=== PATIENT | male | born 1990 | race Caucasian/White ===

== ENCOUNTER 2018-12-24 17:01 | Observation (INO) | payer OTHER ==
[~2018-12-24] VITALS: Ht 175.3 cm; Wt 116.0 kg
[2018-12-24 21:24] VITALS: Ht 175.3 cm; Wt 116.0 kg
[2018-12-24 21:40] VITALS: BP 134/71; PULSE 80; RESP 19
[2018-12-24 21:45] VITALS: PULSE 83
[2018-12-24] MEDS ORDERED: LACTOBACILLUS RHAMNOSUS CAP GTB SCH (22:00)
[2018-12-24] MEDS ORDERED: FUROSEMIDE 40 MG TAB GTB SCH (22:00)
[2018-12-24] MEDS ORDERED: ACETAMINOPHEN 650MG/20.3ML CUP GTB PRN ×2 (22:00)
[2018-12-24] MEDS ORDERED: VALPROIC ACID LIQUID CUP 250 MG/5 ML CUP GTB SCH (22:00)
[2018-12-24] MEDS ORDERED: OCULAR LUBRICANT 3.5 GM OPH OINT BOTH EYES SCH (22:00)
[2018-12-24] MEDS ORDERED: LEVETIRACETAM (100 MG/ML) 5ML CUP GTB SCH (22:00)
[2018-12-24] MEDS ORDERED: HEPARIN 5,000 UNIT/1 ML VIAL SC SCH (22:00)
[2018-12-24] MEDS ORDERED: FAMOTIDINE 20 MG TAB GTB SCH (22:00)
[2018-12-24] MEDS ORDERED: NYSTATIN 30 GM POWDER BTL TOP SCH (22:00)
[2018-12-24] MEDS ORDERED: ALBUTEROL/IPRATROPIUM (NEB) 3 ML AMP INH PRN (22:30)
[2018-12-24] MEDS ORDERED: LORAZEPAM 1 MG TAB GTB PRN (22:30)
[2018-12-25] VITALS: BP 150/89; PULSE 70; PULSE 90; RESP 19
[2018-12-25] MEDS ORDERED: ONDANSETRON 4 MG INJ IV PRN (00:30)
[2018-12-25] MEDS ORDERED: NITROGLYCERIN (SL) 0.4 MG TAB SL PRN (00:30)
[2018-12-25] MEDS ORDERED: BISACODYL (EC) 5 MG TAB PO PRN (00:30)
[2018-12-25] MEDS ORDERED: DOCUSATE SODIUM 100 MG CAP PO PRN (00:30)
[2018-12-25] MEDS ORDERED: NACL 0.9% 3 ML SYG IV SCH (00:30)
[2018-12-25] MEDS ORDERED: ACETAMINOPHEN 325 MG TAB PO PRN (00:30)
[2018-12-25] MEDS ORDERED: ALBUTEROL/IPRATROPIUM (NEB) 3 ML AMP HHN SCH (01:00)
--- NOTE | 2018-12-25 02:56 | HP ---
Date/Time of Note Date/Time of Note DATE: 12/25/18 TIME: 02:55 Assessment/Plan VTE Prophylaxis SCD applied (from Nsg): Yes Pharmacological prophylaxis: NA/contraindicated Pharm contraindication: low risk/ambulating Lines/Catheters IV Catheter Type (from Nrsg): Peripheral IV Assessment/Plan Hospital Course This is a 28-year male being admitted to the telemetry floor for: #1 chest pain: Rule out ACS versus costochondritis secondary to URI. Patient does have anterior chest wall pain. He does have a history of hypertension as well and a family history of [place]. Will trend cardiac enzymes x3, first enzymes were negative. Will check an echocardiogram. Consider cardiology consultation. We will check hemoglobin A 1C, lipid panel, TSH. We will also give 2 doses of Toradol. #2 URI: Patient did have an elevated white blood cell count of approximate 14,000 the transfer facility, will recheck labs here. Patient is currently afebrile. This likely appears to be post viral cough. Will check a chest x-ray as well. #3 hypertension: We will resume patient home blood pressure medication #4 obesity: We will check hemoglobin A 1C, lipid panel, TSH encourage diet and exercise #5 DVT GI prophylaxis: SCDs, no GI prophylaxis indicated Further treatment strategy will be implemented as per the clinical course. Result Diagram: 12/25/185 12/25/185 Results 24hrs Laboratory Tests Test 12/25/18 00:35 White Blood Count 10.6 Red Blood Count 5.04 Hemoglobin 13.4 L Hematocrit 41.7 L Mean Corpuscular Volume 82.7 Mean Corpuscular Hemoglobin 26.6 L Mean Corpuscular Hemoglobin Concent 32.1 Red Cell Distribution Width 13.0 Platelet Count 293 Mean Platelet Volume 10.7 H Immature Granulocytes % 0.800 H Neutrophils % 49.8 Lymphocytes % 39.1 Monocytes % 6.4 Eosinophils % 3.2 Basophils % 0.7 Nucleated Red Blood Cells % 0.0 Immature Granulocytes # 0.080 H Neutrophils # 5.3 Lymphocytes # 4.1 H Monocytes # 0.7 Eosinophils # 0.3 Basophils # 0.1 Nucleated Red Blood Cells # 0.0 Sodium Level 141 Potassium Level 4.5 Chloride Level 108 Carbon Dioxide Level 22 Anion Gap 11 Blood Urea Nitrogen 17 Creatinine 0.78 Est Glomerular Filtrat Rate mL/min > 60 Glucose Level 102 Hemoglobin A1c 5.7 Calcium Level 9.7 Magnesium Level 2.1 Total Bilirubin 0.3 Direct Bilirubin 0.00 Indirect Bilirubin 0.3 Aspartate Amino Transf (AST/SGOT) 34 Alanine Aminotransferase (ALT/SGPT) 46 Alkaline Phosphatase 83 Creatine Kinase 89 Creatine Kinase Index 0.6 Creatinine Kinase MB (Mass) 0.53 Troponin I < 0.012 Total Protein 7.8 Albumin 4.2 Globulin 3.60 H Albumin/Globulin Ratio 1.16 Triglycerides Level 204 H Cholesterol Level 193 LDL Cholesterol, Calculated 120 HDL Cholesterol 32 Cholesterol/HDL Ratio 6.0 Thyroid Stimulating Hormone (TSH) 1.930 HPI/ROS Admit Date/Time Admit Date/Time Dec 24, 2018 at 21:00 Hx of Present Illness Chief complaint: Cough times 2 weeks, chest pressure This is a 28-year-old male with a past medical history of hypertension and acid reflux who originally presented to [facility] complaining of cold like symptoms for the last 2 weeks along with chest pressure for approximately 1-2 days. Patient reports that he had a cough that started approximately 2 weeks ago with runny nose and headaches. After those resolved he continued to have a cough. 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 He also was feeling short of breath while he was walking. He denies any hemoptysis. Denies any pleuritic chest pain. Denies any radiation to the arm. He does have a family history of cardiac disease and heart attacks. He continues to have a cough. Vitals on presentation at the transferring facility: Temperature 99.3/pulse 101/respirations 16/BP 164/95/pulse ox 99% on room air Pertinent laboratory findings please see chart for full details: White blood cell count 14.1/hemoglobin 13.5/hematocrit 41%/platelet count 169 Sodium 138 potassium 4.0 chloride 102 carbon dioxide 24 creatinine 0.8/troponin less than 6 graph EKG: Normal sinus rhythm at approximately 93 bpm, no ST or T wave of normalities concerning for acute ischemia Allergies: NKDA Medications: Benazepril Hydrochlorothiazide ROS Const: As per HPI Eyes : No pain discharge or redness or change in visual acuity ENT: No pain, sore throat, congestion, congestion, dysphagia or discharge Respiratory: As per HPI Cardiovascular: as per HPI GI : no change in appetite, abdominal pain, nausea, vomiting, diarrhea, const ipation, or change in the color his stool Genitourinary: No dysuria, hematuria, flank pain , discharge or CVA tenderness Musculoskeletal: No joint pain, back pain, neck pain, restricted range of motion in neck or joints Skin: No rash, bruising or hives Neuro: No headache, dizziness, syncope, seizure, focal weakness Endocrine: No polyuria, polydipsia, temperature intolerance Psych: No hallucination, depression, anxiety or suicidal ideation PMH/Family/Social Past Medical History Hypertension Medications Current Medications IV Flush (NS 3 ml) 3 ml PER PROTOCOL IV ; Start 12/25/18 at 00:30 Ondansetron HCl (Zofran Inj) 4 mg Q6H PRN IV NAUSEA/VOMITING; Start 12/25/18 at 00:30 Nitroglycerin (Nitroglycerin (Sl Tab) 0.4 Mg) 1 tab Q5M PRN SL .CHEST PAIN; Start 12/25/18 at 00:30 Acetaminophen (Tylenol Tab) 650 mg Q6H PRN PO .PAIN 1-3 OR TEMP; Start 12/25/18 at 00:30 Docusate Sodium (Colace) 100 mg Q12H PRN PO .CONSTIPATION; Start 12/25/18 at 00:30 Bisacodyl (Dulcolax) 5 mg DAILY PRN PO .CONSTIPATION; Start 12/25/18 at 00:30 Coded Allergies: Unknown: Unable to obtain (Unverified , 12/25/18) Past Surgical History Past Surgical Hx: no surgical history Family History Significant Family History: heart disease Social History Alcohol Use: none Smoking Status: Never smoker Drug Use: none Exam/Review of Systems Vital Signs Vitals Vital Signs Date Temp Pulse Resp B/P (MAP) Pulse Ox O2 O2 Flow FiO2 Time Delivery Rate 12/25/18 90 00:00 12/25/18 98.0 19 150/89 96 00:00 (109) Exam Exam General: Patient is a pleasant male currently lying in bed in no acute distress, he is persistently coughing HEENT: Atraumatic, normocephalic. The pupils are equal, round and reactive. Extraocular motor are intact Neck: Supple with full range of motion. No rigidity or meningismus Chest: tenderness palpation across the anterior chest wall Lungs: Clear to auscultation bilaterally no crackles rales or wheezing Heart: Normal S1-S2, Regular rhythm and rate. Abdomen: Obese, soft , nontender, nondistended , bowel sounds are present. No guarding no rebound tenderness , No masses or organomegaly. No costovertebral temporal angle mass Extremities: Normal to inspection, no edema no cyanosis Neurologic: Normal mental status, speech normal, cranial nerves II through XII are intact, motor and sensory are intact, no focal weakness PAMELA PERALES Dec 25, 2018 02:56
[2018-12-25] MEDS ORDERED: LEVALBUTEROL (NEB) 1.25 MG/0.5 ML AMP HHN PRN (03:00)
[2018-12-25 04:00] VITALS: BP 132/78; PULSE 119; PULSE 88; RESP 19
[2018-12-25] MEDS ORDERED: BENA40TA56 PO (04:29)
[2018-12-25] MEDS ORDERED: HYDR25TA6 PO (04:29)
[2018-12-25] MEDS: KETOROLAC 15 MG INJ IV SCH ×2 (05:33→11:01)
[2018-12-25 08:20] VITALS: PULSE 90
[2018-12-25 08:25] VITALS: BP 160/84; PULSE 86
[2018-12-25] MEDS ORDERED: HYDROCHLOROTHIAZIDE 25 MG TAB PO SCH (09:00)
[2018-12-25] MEDS ORDERED: FLUCONAZOLE 200 MG TAB GTB SCH (09:00)
[2018-12-25] MEDS ORDERED: BENAZEPRIL 40 MG TAB PO SCH (09:00)
--- NOTE | 2018-12-25 10:12 | PDOCDIS ---
Discharge Instructions CONDITION [id number] Patient Condition: [id number] Stable HOME CARE INSTRUCTIONS: [id number] Diet Instructions: [id number] Low Fat /Cholesterol FOLLOW UP/APPOINTMENTS Follow-up Plan Your total cholesterol is above normal limits. At this time, we recommend you continue with weight reduction, diet changes to low-cholesterol/low-fat diet with daily exercise/walking 30-45 minutes, fish oil supplementation 2 times a day with meals and then repeat your lipid panel in 4 weeks. If your cholesterol level still remains high at that point, you need to be started on a medication to lower your cholesterol level. Follow-up with primary care physician in 1 week CARL QUIÑONES NP Dec 25, 2018 10:12
[2018-12-25] MEDS ORDERED: OMEG100024 PO (10:13)
--- NOTE | 2018-12-25 10:20 | DS ---
Date/Time of Note Date/Time of Note DATE: 12/25/18 TIME: 10:17 Discharge Summary Admission/Discharge Info Admit Date/Time Dec 24, 2018 at 21:00 Discharge Date/Time Discharge Diagnosis 1. Chest pain, likely costochondritis. Resolved. Acute coronary syndrome r uled out. 2. Essential hypertension 3. Hypercholesterolemia 4. Obesity. Patient Condition: Stable Procedures 12/25/2018. Chest x-ray. IMPRESSION: No acute cardiopulmonary disease. Hospital Course 28-year-old obese male with a history of hypertension, was transferred from outside hospital where he initially presented with chest pain. Apparently, patient has been, having an upper respiratory infection with cough for the past 2 weeks. On exam, patient has quite localized and reproducible pain with palpation of chest wall, so most likley this is a musculoskeletal pain in origin.Troponins and EKG are negative for acute [place] and the duration of her syptoms are not consistent with angina or ACS.No need for provocative Stress testing given not consistent with angina. No respiratory symptoms and low wells score to suggest PE .Aspirin held given low pretest probability for cardiac etiology. For the above, we decided to discharge patient with PCP follow-up. Patient was recommended to take fish oil supplementation 2000 mg twice daily for underlying hypercholesterolemia and weight reduction. Statin deferred for outpatient follow-up per patient's request after repeating lipid panel in 4 weeks with the above regimen. On day of discharge, patient with no further chest pain or symptoms. He is very eager to be discharged home. Approximately 60 m spent on coordinating the discharge on this patient. Patient is seen in collaboration with Dr. Ozuna. Home Meds Active Scripts [place]-3/Dha/Epa/Fish Oil (Fish Oil 1,000 mg Softgel) 1,000 Mg Capsule, 2000 MG PO BID, #60 CAP Prov:CARL QUIÑONES V. DEPARTMENT SUPERVISOR 12/25/18 Benazepril Hcl* (Benazepril Hcl*) 40 Mg Tablet, 40 MG PO DAILY, #30 TAB Prov:PAMELA PERALES 12/25/18 Hydrochlorothiazide* (Hydrochlorothiazide*) 25 Mg Tab, 25 MG PO DAILY, #30 TAB Prov:PAMELA PERALES 12/25/18 Follow-up Plan Follow-up with primary care physician in 1 week Primary Care Provider Not On Staff Doctor Pending Labs Laboratory Tests Test 12/25/18 00:35 12/25/18 05:24 12/25/18 06:55 White Blood Count 10.6 10^3/ul (4.8-10.8) Red Blood Count 5.04 10^6/ul (4.70-6.10) Hemoglobin 13.4 g/dl (14.0-18.0) Hematocrit 41.7 % (42.0-52.0) Mean Corpuscular 82.7 Volume fl (82.0-101.0) Mean Corpuscular 26.6 pg (29.0-33.0) Hemoglobin Mean Corpuscular 32.1 Hemoglobin Concent g/dl (32.0-37.0) Red Cell 13.0 % (11.5-14.5) Distribution Width Platelet Count 293 10^3/UL (140-415) Mean Platelet 10.7 fl (7.4-10.4) Volume Immature 0.800 Granulocytes % % (0.001-0.429) Neutrophils % 49.8 % (39.0-77.0) Lymphocytes % 39.1 % (15.0-51.0) Monocytes % 6.4 % (0.0-11.0) Eosinophils % 3.2 % (0.0-7.0) Basophils % 0.7 % (0.0-2.0) Nucleated Red Blood 0.0 Cells % /100WBC (0.0-0.0) Immature 0.080 Granulocytes # 10^3/ul (0.0-0.031) Neutrophils # 5.3 10^3/ul (1.6-7.5) Lymphocytes # 4.1 10^3/ul (0.8-2.9) Monocytes # 0.7 10^3/ul (0.3-0.9) Eosinophils # 0.3 10^3/ul (0.0-0.5) Basophils # 0.1 10^3/ul (0.0-0.1) Nucleated Red Blood 0.0 Cells # 10^3/ul (0.0-0.0) Sodium Level 141 mmol/L (135-144) Potassium Level 4.5 mmol/L (3.5-5.1) Chloride Level 108 mmol/L (97-110) Carbon Dioxide 22 mmol/L (21-31) Level Anion Gap 11 (5-13) Blood Urea 17 mg/dl (7-20) Nitrogen Creatinine 0.78 mg/dl (0.61-1.24) Est Glomerular > 60 mL/min (>60) Filtrat Rate mL/min Glucose Level 102 mg/dl (70-220) Hemoglobin A1c 5.7 % (0-5.9) Calcium Level 9.7 mg/dl (8.4-10.2) Magnesium Level 2.1 mg/dl (1.7-2.5) Total Bilirubin 0.3 mg/dl (0.2-1.3) Direct Bilirubin 0.00 mg/dl (0.00-0.20) Indirect Bilirubin 0.3 mg/dl (0-1.1) Aspartate Amino 34 IU/L (15-46) Transf (AST/SGOT) Alanine 46 IU/L (13-69) Aminotransferase (A LT/SGPT) Alkaline 83 IU/L (42-121) Phosphatase Creatine Kinase 89 IU/L (23-200) 83 IU/L (23-200) Creatine Kinase 0.6 0.7 Index Creatinine Kinase 0.53 0.55 MB (Mass) ng/ml (0.0-2.4) ng/ml (0.0-2.4) Troponin I < 0.012 < 0.012 ng/ml (0.000-0.120) ng/ml (0.000-0.120 ) Total Protein 7.8 g/dl (6.1-8.1) Albumin 4.2 g/dl (3.3-4.9) Globulin 3.60 g/dl (1.3-3.2) Albumin/Globulin 1.16 Ratio Triglycerides 204 mg/dl (0-149) Level Cholesterol Level 193 mg/dl (100-200) LDL Cholesterol, 120 mg/dl Calculated HDL Cholesterol 32 mg/dl (28-63) Cholesterol/HDL 6.0 RATIO Ratio Thyroid Stimulating 1.930 Hormone (TSH) MIU/L (0.465-4.680) Lab Scanned Report REFERENCE LAB [id number] CARL QUIÑONES NP Dec 25, 2018 10:20
[2018-12-25] MEDS ORDERED: FISH OIL 1,000 MG CAP PO SCH (10:30)
[2018-12-25 11:17] VITALS: BP 167/88; PULSE 103; RESP 18
[2018-12-25] MEDS ORDERED: hydrALAzine 20 MG INJ IV ONE (12:00)
[2018-12-25 14:13] VITALS: BP 151/77; PULSE 100
--- NOTE | 2018-12-25 19:52 | RADRPT ---
Echocardiogram Report Patient Name: ALANNAH WADEPatient ID: [id number] : 1990 (28y 1m)Study Date: 12/25/2018 7:44:36 AM Gender: MAccession #: [id number] Tech: Spring Galloway RDCS Location: [facility] Ref.Physician: PAMELA PERALES Height(Cm): BSA: Weight(Kg): Quality: AdequateAccount #: Procedures: Echocardiographic Report: Transthoracic echocardiogram with complete 2D, M-Mode, and doppler examination. Indications: Chest Pain. Measurements: 2D/M Mode Doppler Measurement Value Normal Range Measurement Value Normal Range LVIDd 2D 4.2 [ 4.2 - 5.8 ] cm AV Peak Harris 1.2 [ 100.0 - 170.0 ] cm/sec LVIDs 2D 2.6 [ 2.5 - 4.0 ] cm AV Peak PG 6.0 [ 2.0 - 9.0 ] mmHg LVPWd 2D 1.2 [ 0.6 - 1.0 ] cm LVOT Peak Harris 1.1 [ 70.0 - 110.0 ] cm/sec IVSd 2D 1.2 [ 0.6 - 1.0 ] cm LVOT Peak PG 5.0 [ 2.0 - 6.0 ] mmHg AoR Diam 2D 2.8 [ 2.6 - 3.4 ] cm MV E Peak Harris 0.7 [ 60.0 - 130.0 ] cm/sec EDV 2D 78.6 [ 62.0 - 150.0 ] ml MV A Peak Harris 0.6 [ 100.0 - 120.0 ] cm/sec ESV 2D 24.1 [ 21.0 - 61.0 ] ml MV E/A 1.3 [ 0.8 - 1.5 ] ratio EF 2D 69.3 [ 52.0 - 72.0 ] percent MV Decel Time 250 [ 104 - 258 ] msec LA Dimen 2D 3.4 [ 3.0 - 4.0 ] cm Lat E` Harris 0.2 [ 10.0 - 15.0 ] cm/sec Lateral E/E` 4.2 [ 1.0 - 2.0 ] ratio Med E` Harris 0.1 cm/sec MV E/A 1.3 [ 0.8 - 1.5 ] ratio TR Peak Harris 2.2 [ 100.0 - 280.0 ] cm/sec TR Peak PG 19.0 mmHg RVSP 22.0 [ 10.0 - 36.0 ] mmHg RA Pressure 3.0 mmHg Findings: Left Ventricle: Normal left ventricular systolic function. Normal left ventricular cavity size. Mild concentric left ventricular hypertrophy. Ejection fraction is visually estimated at 55 %. Tissue Doppler/Mitral Doppler indices are within normal limits. Right Ventricle: Normal right ventricular size. Normal right ventricular systolic function. Left Atrium: The left atrium is normal in size. Right Atrium: The right atrium is normal in size. Mitral Valve: Normal appearance and function of the mitral valve with trace physiologic regurgitation. Aortic Valve: Normal appearance of the aortic valve. No significant aortic stenosis or insufficiency. Tricuspid Valve: Normal appearance of the tricuspid valve. Estimated peak PA systolic pressure 22 mmHg. There is trace tricuspid regurgitation. Pulmonic Valve: Pulmonic valve not well visualized. Pericardium: Normal pericardium with no significant pericardial effusion. Aorta: Normal aortic root. IVC: Normal size and normal respiratory collapse consistent with normal right atrial pressure. Conclusions: Normal left ventricular systolic function. Normal left ventricular cavity size. Mild concentric left ventricular hypertrophy. Ejection fraction is visually estimated at 55 %. Tissue Doppler/Mitral Doppler indices are within normal limits. Normal appearance and function of the mitral valve with trace physiologic regurgitation. Normal appearance of the tricuspid valve. Estimated peak PA systolic pressure 22 mmHg. There is trace tricuspid regurgitation. Electronically Signed By: Flip Reynolds 2018-12-25 19:50:51 PDT
== END 2018-12-25 15:10 | disposition home or self-care (01) ==
LOC: INTOOBSV 21:00 → TEL 21:00
PROVIDERS: ADMIT Internal Medicine; ATTEND Internal Medicine
DX: M94.0 Chondrocostal junction syndrome [Tietze] (principal); I10 Essential (primary) hypertension; E78.00 Pure hypercholesterolemia, unspecified; E66.9 Obesity, unspecified; Z68.37 Body mass index [BMI] 37.0-37.9, adult; J06.9 Acute upper respiratory infection, unspecified
CPT/HCPCS: 71045; 80053; 80061; 82306; 82550; 82553; 83036; 83735; 84443; 84484; 85025; 93306; J0360; J1885; Z7500; Z7610; 99217; G0378

== ENCOUNTER 2019-04-05 12:42 | Emergency (ER) | payer OTHER ==
[~2019-04-05] VITALS: Ht 175.3 cm; Wt 115.2 kg
[~2019-04-05 12:42] MED LIST: BENA40TA56 PO; HYDR25TA6 PO; OMEG100024 PO
[2019-04-05 12:45] VITALS: Ht 175.3 cm; Wt 115.2 kg
--- NOTE | 2019-04-05 13:43 | ERD ---
ER Documentation Chief Complaint Chief Complaint right side chest pain am, hurts when he presses on it. HPI 28-year-old male with history of retention complains of right-sided chest pain since this morning. States he has had incidents in the past as well but he was never diagnosed with any type of ischemia. Patient states that his pain is currently on the right side and nonradiating. Denies SOB, dyspnea, lower extremity swelling or pain, pain on exertion, diaphoresis, nausea, radiating of pain, recent travel or immobilization, hemoptysis, dsypnea, history of clotting disorder, syncope, fever, or cough. ROS All systems reviewed and are negative except as per history of present illness. Medications Home Meds Active Scripts Ibuprofen* (Motrin*) 600 Mg Tab, 600 MG PO Q6H PRN for PAIN AND OR ELEVATED TEMP, #30 TAB Prov:FRED AMAYA 04/05/19 [place]-3/Dha/Epa/Fish Oil (Fish Oil 1,000 mg Softgel) 1,000 Mg Capsule, 2000 MG PO BID, #60 CAP Prov:CARL QUIÑONES NP 12/25/18 Benazepril Hcl* (Benazepril Hcl*) 40 Mg Tablet, 40 MG PO DAILY, #30 TAB Prov:PAMELA PERALES 12/25/18 Hydrochlorothiazide* (Hydrochlorothiazide*) 25 Mg Tab, 25 MG PO DAILY, #30 TAB Prov:MATHEW PERALESB 12/25/18 Allergies Allergies: Coded Allergies: No Known Allergy (Unverified , 04/05/19) PMhx/Soc Hx Cardiac Disorders: Yes (HTN) Hx Alcohol Use: No Hx Substance Use: No Hx Tobacco Use: No FmHx Family History: No diabetes, No coronary disease, No other Physical Exam Vitals Vital Signs Date Temp Pulse Resp B/P (MAP) Pulse Ox O2 O2 Flow FiO2 Time Delivery Rate 04/05/19 98.6 78 16 176/98 98 Room Air 15:05 (124) 04/05/19 98.6 80 18 167/107 98 12:45 (127) Physical Exam Const: No acute distress Head: Atraumatic Eyes: Normal Conjunctiva ENT: Normal External Ears, Nose and Mouth. Neck: Full range of motion. No meningismus. Resp: Clear to auscultation bilaterally Cardio: Regular rate and rhythm, no murmurs. Tenderness to palpation over the right anterior chest wall area. There are no bony deformities or masses noted. No erythema or edema noted. Abd: Soft, non tender, non distended. Normal bowel sounds Skin: No petechiae or rashes Back: No midline or flank tenderness Ext: No cyanosis, or edema Neur: Awake and alert Psych: Normal Mood and Affect Results 24 hrs Laboratory Tests Test 04/05/19 13:56 Troponin I < 0.012 ng/ml Procedures/MDM EKG: Rate/Rhythm: Normal Sinus Rhythm QRS, ST, T-waves: No changes consistent w/ acute ischemia Impression: No evidence of ischemia or arrhythmia DIAGNOSTIC IMAGING REPORT Patient: ALANNAH WADE : 1990 Age: 28 Sex: M MR #: [id number] DOS: 04/05/19 1336 Ordering MD: FRED AMAYA Location: [facility] Room/Bed: PROCEDURE: XR chest. CLINICAL INDICATION: Chest pain TECHNIQUE: Portable AP view of the chest was obtained. COMPARISON: 12/25/2018 FINDINGS: Cardiomediastinal silhouette is normal. There is no pneumothorax or pleural effusion. There is no focal pulmonic consolidation. IMPRESSION: 1. No acute pulmonary abnormality. RPTAT:HAJM Physician Young Date Time Electronically viewed and signed by Physician Young on 04/05/2019 14:48 RM/ CC: FRED AMAYA [id number] MDM: Patient's diastolic is 176 at discharge but I have low suspicion that patient was advised to follow-up with his primary care provider in order to get his hypertension medications managed s having symptomatic hypertension as his EKG is normal, troponins are normal, and his chest x-ray is also within normal limits. In addition, pain is repeated upon palpation of the chest wall, leading me to believe that the problem was more musculoskeletal than anything. Patient was advised to follow-up with his primary care provider to manage his hypertension medications. I have low suspicition for acute coronary syndrome, pulmonary embolism, aortic dissection, AAA, pneumothorax, esophageal rupture, pericarditis, myocarditis, or pneumonia based on EKG, imaging, labs, patient history and exam. Patient discharged with strict ER precautions. Patient advised to follow up with PMD. All questions answered at discharge. At this time, patient is stable for discharge and outpatient management. I have instructed the patient to follow-up with his/her primary care physician in 1-2 days. I have discussed with the patient the possibility of needing to see a specialist for further workup and imaging studies if symptoms persist. I have instructed the patient to promptly return to the ER for any new or worsening symptoms including but not limited to increased pain, fever, nausea, vomiting, weakness or LOC. The patient and/or family expressed understanding of and agreement with this plan. All questions were answered. Home care instructions were provided. DISCLAIMER: Inadvertent spelling and grammatical errors are likely due to EHR/dictation software use and do not reflect on the overall quality of patient care. Also, please note that the electronic time recorded on this note does not necessarily reflect the actual time of the patient encounter. Departure Diagnosis: Primary Impression: Chest wall pain Condition: Stable FRED AMAYA Apr 05, 2019 13:43
[2019-04-05] MEDS ORDERED: IBUP-1542 PO (14:52)
[2019-04-05 15:05] VITALS: BP 176/98; PULSE 78; RESP 16
== END 2019-04-05 15:06 | disposition home or self-care (01) ==
LOC: FTE 12:42
DX: R07.89 Other chest pain (principal); I10 Essential (primary) hypertension
CPT/HCPCS: 36415; 71045; 84484; 93005; Z7502